=== PATIENT | male | born 1960 | race Asian ===

== ENCOUNTER 2021-02-02 13:41 | Inpatient (IN) | payer MEDICAID, SELFPAY ==
--- NOTE | 2021-01-30 22:00 | NUR ---
PT ASLEEP. VISIBLE CHEST RISE AND FALL NOTED. CALL LIGHT WITHIN REACH. ALL PRECAUTIONS IN PLACE. WILL CONTINUE TO MONITOR
[~2021-02-02] VITALS: Ht 170.2 cm; Wt 53.5 kg
--- NOTE | 2021-02-02 13:45 | NUR ---
PT BIBA TAKEN TO ER BED 9.
[2021-02-02 13:46] VITALS: BP 128/82
--- NOTE | 2021-02-02 14:11 | NUR ---
SPOKE WITH PATIENT DAUGHTER HAIM FOR TRANSLATION. PT NUMBER [phone]. PT DAUGHTER NANDINI [phone]
[2021-02-02] MEDS ORDERED: MORPHINE SULFATE 4 MG/ML SYR IVP ONE ×2 (14:15→15:45)
[2021-02-02] MEDS ORDERED: ONDANSETRON 4 MG/2 ML VIAL IVP ONE (14:15)
--- NOTE | 2021-02-02 14:20 | NUR ---
60 Y MALE BIBA DUE TO ABDOMINAL PAIN THAT IS NON-RADITING. PER EMS PT WAS FOUND IN CAR SITTING ON SIDE OF [address] DUE TO ABDOMINAL PAIN. PER PT PAIN IS CURRENTLY 10/10 AND SHARP LIKE. PT DENIES ANY CHEST PAIN, SOB, FEVER/CHILLS AT THIS TIME. ABDOMEN IS RIGID TO TOUCH AND TENDER. PT IS CURRENTLY GUARING AND ACTIVELY MOVING TO RESOLVE PAIN. 18 G IV ESTABLISHED IN FIELD BY EMS. PMH: DENIES NKA
--- NOTE | 2021-02-02 14:20 | NUR ---
Note undone in EDM - 02/02/21 at 1436 by [email or web address] 60 Y MALE BIBA DUE TO ABDOMINAL PAIN THAT IS NON-RADITING. PER PT PAIN IS CURRENTLY 10/10 AND SHARP LIKE. PT DENIES ANY CHEST PAIN, SOB, FEVER/CHILLS AT THIS TIME. ABDOMEN IS RIGID TO TOUCH AND TENDER. PT IS CURRENTLY GUARING AND ACTIVELY MOVING TO RESOLVE PAIN. 18 G IV ESTABLISHED IN FIELD BY EMS. PMH: DENIES NKA
--- NOTE | 2021-02-02 14:23 | NUR ---
Tia phillips swab handed to CPT Giovana at ER bedside
--- NOTE | 2021-02-02 14:28 | NUR ---
PT TAKEN TO CT VIA W/C
--- NOTE | 2021-02-02 14:54 | NUR ---
PT RETURNED TO BED [address] VIA W/C
[2021-02-02] MEDS ORDERED: PIPERACILLIN/TAZOBACTAM 4.5 GM in DEXTROSE 5% 100 ML IV ONE (15:40)
[2021-02-02] MEDS ORDERED: PIPERACILLIN/TAZOBACTAM 4.5 GM VIAL IV ONE (15:45)
--- NOTE | 2021-02-02 15:50 | NUR ---
Daughter at bedside
[2021-02-02 16:06] LABS: BASOPHILS % (AUTO) 0.1 % (0.0-2.0); EOSINOPHILS % (AUTO) 0.1 % (0.0-4.0); HEMATOCRIT 36.7 % (36-52); HEMOGLOBIN 11.6 g/dL (12.0-18.0); LYMPHOCYTES # (AUTO) 0.2 K/uL (2.0-11.5); LYMPHOCYTES % (AUTO) 4.2 % (20.5-51.1); MEAN CORPUSCULAR HEMOGLOBIN 22 pg (27-31); MEAN CORPUSCULAR HGB CONC 32 g/dL (33-37); MEAN CORPUSCULAR VOLUME 70.9 fL (80-94); MONOCYTES # (AUTO) 0.2 K/uL (0.8-1.0); MONOCYTES % (AUTO) 4.3 % (1.7-9.3); NEUTROPHILS % (AUTO) 91.3 % (42.2-75.2); PLATELET COUNT (AUTO) 357 K/uL (140-450); RED BLOOD CELL COUNT(AUTO) 5.18 MIL/uL (4.20-6.10); RED CELL DISTRIBUTION WIDTH 16.8 % (11.6-13.7); WHITE BLOOD COUNT (AUTO) 5.5 K/uL (4.8-10.8)
--- NOTE | 2021-02-02 16:14 | NUR ---
Pt reports + relief to pain; 7/10 at this time.
--- NOTE | 2021-02-02 16:18 | NUR ---
PT REMOVED ALL CLOTHES AND PLACED ONLY IN GOWN FOR SURGERY
[2021-02-02 16:27] LABS: ALBUMIN 3.8 g/dL (3.4-5.0); ANION GAP 14.9 (8-16); CARBON DIOXIDE 26.6 mmol/L (21-32); CREATININE 0.9 mg/dL (0.6-1.3); POTASSIUM 4.5 mmol/L (3.5-5.1); TOTAL BILIRUBIN 0.5 mg/dL (0.0-1.0)
--- NOTE | 2021-02-02 16:28 | NUR ---
MED REC COMPLETED FOR PATIENT
--- NOTE | 2021-02-02 17:27 | NUR ---
Patient appears to be resting comfortably in bed. Vital Signs within normal limits. Respirations even and unlabored.
--- NOTE | 2021-02-02 17:40 | NUR ---
DR. SAMUEL BEDSIDE SPEAKING WITH PATIENT AND PROVIDING INFORMATION ON SURIGAL INTERVENTIONS
--- NOTE | 2021-02-02 17:43 | NUR ---
PT STATED HE IS STILL UNABLE TO PROVIDE URINE AT THIS TIME
[2021-02-02] MEDS ORDERED: HYDROcodone/APAP 5/325 MG 1 TAB TAB PO PRN (17:50)
[2021-02-02] MEDS ORDERED: SODIUM PHOS / POTASSIUM PHOS 1 PKT PDR PO PRN (17:50)
[2021-02-02] MEDS ORDERED: DOCUSATE SODIUM 100 MG GELCAP PO PRN (17:50)
[2021-02-02] MEDS ORDERED: ZOLPIDEM 5 MG TAB PO PRN (17:50)
[2021-02-02] MEDS ORDERED: ONDANSETRON 4 MG/2 ML VIAL IVP PRN ×2 (17:50→21:00)
[2021-02-02] MEDS ORDERED: LORazepam 2 MG/ML VIAL IM/IVP PRN (17:50)
[2021-02-02] MEDS ORDERED: MAG SULF 2000 MG/WATER PREMIX 50 ML IV PRN (17:50)
[2021-02-02] MEDS ORDERED: ACETAMINOPHEN 325 MG TAB PO PRN (17:50)
[2021-02-02] MEDS ORDERED: POTASSIUM CHLORIDE 10 MEQ TABER PO PRN (17:50)
--- NOTE | 2021-02-02 17:51 | NUR ---
CONSENT FOR SURGERY SIGNED AND PLACED INTO PATIENT CHART
--- NOTE | 2021-02-02 18:12 | NUR ---
DR. VALDERRAMA BEDSIDE EVALUATING PT
[2021-02-02] MEDS: MORPHINE SULFATE 2 MG/ML SYR IVP PRN (18:27)
--- NOTE | 2021-02-02 18:28 | NUR ---
PT STATING PAIN CURRENTLY 08/18. PROVIDED PT WITH PAIN MEDICATION. WILL RE-EVALUATE IN 15 MIN
[2021-02-02 18:48] LABS: PROTHROMBIN TIME 11.5 secs (10.8-13.4)
--- NOTE | 2021-02-02 18:53 | NUR ---
Patient will be admitted to care of DR. VALDERRAMA. Admited to TELE. Will go to room 126B. Belongings list completed. Report to OR NURSE. PT TAKEN TO SURGERY VIA GURNEY.
--- NOTE | 2021-02-02 18:53 | NUR ---
PT TAKEN TO SURGERY BY OR NURSE VIA RED
[2021-02-02] MEDS ORDERED: DEXAMETHASONE 4 MG/ML VIAL ONE (19:00)
[2021-02-02 19:07] LABS: PHOSPHORUS 2.7 mg/dL (2.5-4.9); THYROID STIMULATING HORMONE 0.96 uIU/mL (0.34-3.74)
[2021-02-02] MEDS ORDERED: LACTATED RINGERS 1,000 ML IV SCH (19:15)
[2021-02-02] MEDS ORDERED: PROPOFOL 200 MG/20 ML VIAL IV ONE (19:17)
[2021-02-02] MEDS ORDERED: MIDAZOLAM 2 MG/2 ML VIAL ONE (19:17)
[2021-02-02] MEDS ORDERED: HYDROmorphone PFS 2 MG/ML SYR ONE (19:17)
[2021-02-02] MEDS ORDERED: BUPIVACAINE-MPF/EPI 0.25% 30 ML VIAL INJ ONE (19:21)
[2021-02-02] MEDS ORDERED: LIDOCAINE 1% 500 MG/50 ML VIAL ONE (19:21)
[2021-02-02] MEDS ORDERED: ROCURONIUM 50 MG/5 ML VIAL IV ONE (19:23)
[2021-02-02] MEDS ORDERED: NEOSTIGMINE 1:1000 10 MG/10 ML VIAL ONE (20:22)
[2021-02-02] MEDS ORDERED: GLYCOPYRROLATE 0.2 MG/ML VIAL ONE ×2 (20:22)
[2021-02-02] MEDS ORDERED: HYDROmorphone 1 MG/ML AMP IVP PRN (21:00)
[2021-02-02] MEDS ORDERED: MEPERIDINE 25 MG/ML SYR IVP PRN (21:00)
[2021-02-02 21:30] VITALS: BP 104/61
--- NOTE | 2021-02-02 21:40 | NUR ---
RECEIVED PT FROM OR NURSE VIA [facility] FOR CONTINUITY OF CARE. PT ASLEEP BUT EASILY AROUSABLE WHEN CALLED BY NAME.PT ON ROOM AIR. PT JUST HAD SURGERY FOR PERFORATED DUODENAL ULCER. VERTICAL SURGICAL INCISION ON ABDOMEN, DRESSING DRY AND INTACT WITH FIDENCIO DRAIN ON R LOWER ABDOMEN. PT HAS IV ON L AC G18 INFUSING WELL. DAUGHTER AT BEDSIDE. DAUGHTER AND PATIENT ORIENTED TO ROOM AND CALL LIGHT. BED IN LOW LOCKED POSITION. ALL PRECAUTIONS IN PLACE. CALL LIGHT WITHIN REACH. WILL CONTINUE TO MONITOR.
[2021-02-02] MEDS: DEXT 5% / NACL 0.45% 1,000 ML IV SCH (22:34)
[2021-02-02] MEDS: FLUCONAZOLE 200 MG/NS PREMIX 100 ML IV SCH (22:34)
--- NOTE | 2021-02-02 22:40 | NUR ---
SCHEDULED MEDICATION ADMINISTERED. NO ADVERSE REACTION NOTED. CALL LIGHT WITHIN REACH. WILL CONTINUE MONITORING.
[2021-02-03] VITALS: BP 106/63
--- NOTE | 2021-02-03 00:24 | NUR ---
PT ASLEEP. VITAL SIGNS STABLE.NO DISTRESS NOTED. ALL PRECAUTION IN PLACE. WILL CONTINUE TO MONITOR.
--- NOTE | 2021-02-03 02:30 | NUR ---
PT ASLEEP. VISIBLE CHEST RISE AND FALL NOTED. CALL LIGHT WITHIN REACH. ALL PRECAUTIONS IN PLACE. WILL CONTINUE TO MONITOR
[2021-02-03 04:00] VITALS: BP 113/70
[2021-02-03] MEDS: DEXT 5% / NACL 0.45% 1,000 ML IV SCH ×3 (04:25→23:37)
--- NOTE | 2021-02-03 05:10 | NUR ---
PT COMPLAINED OF PAIN ON ABDOMEN. PRN PAIN MEDICATION GIVE. ALL PRECAUTIONS IN PLACE. WILL CONTINUE TO MONITOR.
[2021-02-03] MEDS: MORPHINE SULFATE 2 MG/ML SYR IVP PRN ×4 (05:15→18:13)
--- NOTE | 2021-02-03 06:26 | NUR ---
PT IS STABLE. NO ACUTE EVENTS THROUGHOUT THE NIGHT. ALL NEEDS ATTENDED. NO S/SX OF DISTRESS NOTED. ALL PRECAUTIONS IN PLACE. WILL ENDORSE TO AM SHIFT NURSE.
[2021-02-03 06:32] LABS: BASOPHILS % (AUTO) 0.1 % (0.0-2.0); HEMATOCRIT 33.3 % (36-52); HEMOGLOBIN 10.6 g/dL (12.0-18.0); LYMPHOCYTES # (AUTO) 0.3 K/uL (2.0-11.5); LYMPHOCYTES % (AUTO) 2.9 % (20.5-51.1); MEAN CORPUSCULAR HEMOGLOBIN 23 pg (27-31); MEAN CORPUSCULAR HGB CONC 32 g/dL (33-37); MEAN CORPUSCULAR VOLUME 70.7 fL (80-94); MONOCYTES # (AUTO) 0.5 K/uL (0.8-1.0); MONOCYTES % (AUTO) 4.8 % (1.7-9.3); NEUTROPHILS # (AUTO) 9.7 K/uL (1.8-7.7); NEUTROPHILS % (AUTO) 92.2 % (42.2-75.2); PLATELET COUNT (AUTO) 301 K/uL (140-450); RED CELL DISTRIBUTION WIDTH 16.4 % (11.6-13.7); WHITE BLOOD COUNT (AUTO) 10.5 K/uL (4.8-10.8)
[2021-02-03 06:44] LABS: ALBUMIN 2.6 g/dL (3.4-5.0); ANION GAP 10.1 (8-16); CARBON DIOXIDE 26.4 mmol/L (21-32); CREATININE 0.9 mg/dL (0.6-1.3); POTASSIUM 4.5 mmol/L (3.5-5.1); TOTAL BILIRUBIN 0.6 mg/dL (0.0-1.0)
--- NOTE | 2021-02-03 07:30 | NUR ---
RECEIVED REPORT FROM BULL FIDDLE PLAYER NURSE. PT IN BED, FLACC 0, NO RESPIRATORY DISTRESS
[2021-02-03 08:00] VITALS: BP 104/64
[2021-02-03] MEDS: HYDROmorphone 1 MG/ML AMP IVP PRN ×2 (11:46→21:09)
[2021-02-03 12:00] VITALS: BP 105/71
--- NOTE | 2021-02-03 14:00 | NUR ---
NOTED NO URINE OUTPUT SINCE SURGERY, BLADDER DISTENTION NOTED, DR VALDERRAMA NOTIFIED, ORDERED FC INSERTION
--- NOTE | 2021-02-03 15:20 | NUR ---
HYPOACTIVE BOWEL SOUNDS, NO BM, HAS NOT PASSED GAS. SEEN AND EXAMINED BY DR FOFANA, KEEP NPO
[2021-02-03 16:00] VITALS: BP 109/72
[2021-02-03] MEDS: FLUCONAZOLE 200 MG/NS PREMIX 100 ML IV SCH (18:54)
--- NOTE | 2021-02-03 19:30 | NUR ---
RECEIVED PT FROM AM SHIFT NURSE FOR CONTINUITY OF CARE. PT RESTING IN BED WITH DAUGHTER AT BEDSIDE. PT A&O 4. CAN UNDERSTAND AND SPEAK A LITTLE SPANISH WITH DAUGHTER AT BEDSIDE. PT ON ROOM AIR. SKIN WARM AND DRY TO TOUCH. MAN IN PLACE. HYPOACTIVE BOWEL SOUNDS. ALL PRECAUTIONS IN PLACE. CALL LIGHT WITHIN REACH. WILL CONTINUE TO MONITOR.
[2021-02-03 20:00] VITALS: BP 118/69
--- NOTE | 2021-02-03 21:15 | NUR ---
PT COMPLAINING OF PAIN ON ABDOMEN. PRN PAIN MEDICATION GIVEN. WILL CONTINUE TO MONITOR.
--- NOTE | 2021-02-03 23:36 | NUR ---
PT ASLEEP. VISIBLE CHEST RISE AND FALL NOTED. CALL LIGHT WITHIN REACH. ALL PRECAUTIONS IN PLACE. WILL CONTINUE TO MONITOR
[2021-02-04] VITALS: BP 111/67
--- NOTE | 2021-02-04 01:40 | NUR ---
PT ASLEEP. VISIBLE CHEST RISE AND FALL NOTED. CALL LIGHT WITHIN REACH. ALL PRECAUTIONS IN PLACE. WILL CONTINUE TO MONITOR
[2021-02-04] MEDS: MORPHINE SULFATE 2 MG/ML SYR IVP PRN ×3 (03:45→13:12)
--- NOTE | 2021-02-04 03:45 | NUR ---
PT COMPLAINING OF PAIN ON ABDOMEN. PRN PAIN MEDICATION GIVEN. WILL CONTINUE TO MONITOR.
[2021-02-04 04:00] VITALS: BP 133/84
[2021-02-04 06:20] LABS: BASOPHILS % (AUTO) 0.1 % (0.0-2.0); EOSINOPHILS % (AUTO) 0.1 % (0.0-4.0); HEMATOCRIT 33.2 % (36-52); HEMOGLOBIN 10.5 g/dL (12.0-18.0); LYMPHOCYTES # (AUTO) 0.5 K/uL (2.0-11.5); LYMPHOCYTES % (AUTO) 4.5 % (20.5-51.1); MEAN CORPUSCULAR HEMOGLOBIN 22 pg (27-31); MEAN CORPUSCULAR HGB CONC 32 g/dL (33-37); MEAN CORPUSCULAR VOLUME 70.2 fL (80-94); MONOCYTES # (AUTO) 0.8 K/uL (0.8-1.0); NEUTROPHILS # (AUTO) 9.7 K/uL (1.8-7.7); NEUTROPHILS % (AUTO) 88.3 % (42.2-75.2); PLATELET COUNT (AUTO) 281 K/uL (140-450); RED BLOOD CELL COUNT(AUTO) 4.72 MIL/uL (4.20-6.10); RED CELL DISTRIBUTION WIDTH 16.2 % (11.6-13.7)
[2021-02-04 06:35] LABS: ALBUMIN 2.3 g/dL (3.4-5.0); ANION GAP 9.4 (8-16); CARBON DIOXIDE 26.5 mmol/L (21-32); CREATININE 0.7 mg/dL (0.6-1.3); MAGNESIUM 1.8 mg/dL (1.8-2.4); POTASSIUM 3.9 mmol/L (3.5-5.1); TOTAL BILIRUBIN 0.4 mg/dL (0.0-1.0)
[2021-02-04 08:00] VITALS: BP 129/81
--- NOTE | 2021-02-04 08:00 | NUR ---
RECEIVED REPORT FROM IT RISK ADVISOR FOR CONTINUITY OF CARE. PATIENT IS ALERT AWAKE ORIENTED X4, NOT IN ANY DISTRESS NOTED. WITH IVF ON GOING AND INFUSING WELL. ON HEART MONITOR SHOWS SR. C/O PAIN IN THE SURGICAL SITE. MEDICATED WITH MORPHINE ORDER. WITH FIDENCIO DRAIN INTACT. SURGICAL SITE DRESSING DRY AND INTACT. NEEDS ATTENDED. WILL CONTINUE TO MONITOR.
--- NOTE | 2021-02-04 09:12 | NUR ---
PATIENT HAS BEEN SCREENED AND CATEGORIZED MODERATE NUTRITION RISK. PATIENT WILL BE SEEN WITHIN 3-5 DAYS OF ADMISSION. 02/05/21-02/07/21 REVIEWED BY MICKY NOON[address] RD
[2021-02-04] MEDS: DEXT 5% / NACL 0.45% 1,000 ML IV SCH ×2 (10:38→21:35)
--- NOTE | 2021-02-04 11:10 | NUR ---
DC PLANN[age] YRS OLD MALE PATIENT WAS ADMITTED FROM HOME WITH A DX OF PERFORATED BOWEL. PATIENT HAS NO MEDICAL HISTORY. DR SAMUEL PERFORMED LAPAROTOMY PRIMARY REPAIR OF PERFORATED GASTRIC ULCER WITH AMINATA OMENTAL PATCH. POST OP DAY 3, ON FLUCONAZOLE IV ABX. PT TOLERATED WELL ADVANCE DIET TO CLEAR LIQUID . DC PLAN TO GO HOME WHEN STABLE. CM TO FOLLOW Addendum: 02/05/21 at 1124 by Amber Reza RN DC PLANNING: RECEIVED A CALL FROM [employer] [phone] SPOKE WITH NIKKY JOHNSON STATED DIDN'T RECEIVE ANY CLINICALS, UPDATED PT'S CLINICAL AND FAXED TO [phone]. SHE PROVIDE THE PENDING AUTH # [id number]. CM TO FOLLOW
[2021-02-04 12:00] VITALS: BP 139/85
--- NOTE | 2021-02-04 12:00 | NUR ---
PATIENT TEMP 99.8, COOLING MEASURES RENDERED. WILL CONTINUE TO MONITOR.
[2021-02-04 16:00] VITALS: BP 132/85
--- NOTE | 2021-02-04 18:00 | NUR ---
PATIENT RE CHECK TEMP 99.2, WILL CONTINUE TO MONITOR.
[2021-02-04] MEDS: FLUCONAZOLE 200 MG/NS PREMIX 100 ML IV SCH (18:20)
--- NOTE | 2021-02-04 19:23 | NUR ---
REPORT GIVEN TO THE NEXT SHIFT FOR CONTINUITY OF CARE. PATIENT IN STABLE CONDITION.
[2021-02-04 20:00] VITALS: BP 119/84
--- NOTE | 2021-02-04 20:00 | NUR ---
AAOX4, NPO, ABDOMINAL DRESSING INTACT WITH FIDENCIO DRAIN. RECEIVING IVF OF D5 1/2 NS AT 100 ML/HR, IV SITE ON LAC G#18 INTACT AND PATENT. MAN CATH DRAINING YELLOW URINE, DENIES PAIN AT THIS TIME, CALL LIGHT WITHIN REACH.
--- NOTE | 2021-02-04 22:00 | NUR ---
PATIENT VOMITED, ZOFRAN 4 MG IVP GIVEN AT 2133. AT THIS TIME PATIENT IS ASLEEP, WILL CONTINUE TO MONITOR.
--- NOTE | 2021-02-05 | NUR ---
PATIENT AWAKE AT THIS TIME, DENIES PAIN, CALL LIGHT WITHIN REACH, NO DISTRESS.
[2021-02-05 04:00] VITALS: BP 118/84
--- NOTE | 2021-02-05 04:00 | NUR ---
PATIENT ASLEEP, DENIES PAIN, NO NAUSEA/VOMITING.
--- NOTE | 2021-02-05 05:00 | NUR ---
PATIENT COMPLAINED OF PAIN ON IV SITE ON LAC, REDNESS NOTED ON THE SITE, REMOVED IV AND INSERTED A NEW PERIPHERAL LINE ON LFA G#20 WITH GOOD BLOOD RETURN.
[2021-02-05] MEDS: DEXT 5% / NACL 0.45% 1,000 ML IV SCH ×2 (06:25→16:18)
[2021-02-05 06:26] LABS: BASOPHILS % (AUTO) 0.1 % (0.0-2.0); HEMATOCRIT 35.2 % (36-52); LYMPHOCYTES # (AUTO) 0.6 K/uL (2.0-11.5); LYMPHOCYTES % (AUTO) 4.6 % (20.5-51.1); MEAN CORPUSCULAR HEMOGLOBIN 22 pg (27-31); MEAN CORPUSCULAR HGB CONC 31 g/dL (33-37); MEAN CORPUSCULAR VOLUME 70.7 fL (80-94); MONOCYTES # (AUTO) 0.8 K/uL (0.8-1.0); MONOCYTES % (AUTO) 6.7 % (1.7-9.3); NEUTROPHILS # (AUTO) 10.6 K/uL (1.8-7.7); NEUTROPHILS % (AUTO) 88.6 % (42.2-75.2); PLATELET COUNT (AUTO) 299 K/uL (140-450); RED BLOOD CELL COUNT(AUTO) 4.99 MIL/uL (4.20-6.10); RED CELL DISTRIBUTION WIDTH 15.6 % (11.6-13.7); WHITE BLOOD COUNT (AUTO) 11.9 K/uL (4.8-10.8)
--- NOTE | 2021-02-05 06:31 | NUR ---
SLEEPING, AROUSABLE, NO VOMITING AT THIS TIME, DENIES PAIN, CALL LIGHT WITHIN REACH.
[2021-02-05 06:39] LABS: ALBUMIN 2.6 g/dL (3.4-5.0); ANION GAP 10.8 (8-16); CREATININE 0.7 mg/dL (0.6-1.3); POTASSIUM 3.8 mmol/L (3.5-5.1); TOTAL BILIRUBIN 0.5 mg/dL (0.0-1.0)
--- NOTE | 2021-02-05 07:12 | NUR ---
RECEIVED ENDORSEMENT FROM SANITARY LANDFILL OPERATOR NURSE FOR CONTINUITY OF CARE. PT AWAKE ON STABLE CONDITION.
--- NOTE | 2021-02-05 07:33 | NUR ---
ENDORSED PATIENT AND REPORT GIVEN TO SILVINA FLYNN/BELT WORKER FOR CONTINUITY OF CARE.
[2021-02-05 08:00] VITALS: BP 127/85
--- NOTE | 2021-02-05 08:00 | NUR ---
Patient's Plan of Care was discussed and reviewed with TRANSPORTATION AIDE: SILVINA FLYNN
--- NOTE | 2021-02-05 09:15 | NUR ---
PT ALERT TRANSPORTED TO RADIOLOGY BY STAFF ON STABLE CONDITION FOR PROCEDURE.
--- NOTE | 2021-02-05 10:20 | NUR ---
PT BACK FROM RADIOLOGY VIA WHEELCHAIR.
--- NOTE | 2021-02-05 10:34 | NUR ---
REMOVED MAN CATHETER NO SIGN AND SYMPTOMS OF BLEEDING. OBTAIN 600 CC AT CATHETER.
--- NOTE | 2021-02-05 10:46 | NUR ---
RESULT OF UGIS READ TO DR. SAMUEL AND WITH ORDER TO START ON CLEAR LIQUID, IF TOLERATES THE DIET CAN HEPLOCK IV. WILL CONTINUE TO MONITOR.
--- NOTE | 2021-02-05 11:30 | NUR ---
PT AMBULATE TO TOILET WITH DAUGHTER . PT HAD BOWEL MOVEMENT AND URINATED. NO HEMATURIA OR COMPLAIN OF PAIN IN URINATION.
[2021-02-05 12:00] VITALS: BP 130/82
--- NOTE | 2021-02-05 12:30 | NUR ---
PT HAD HIS LUNCH ON LIQUID DIET TOLERATED WELL NO NAUSEA OR VOMITING NOTED. CALL LIGHT WITH IN EASY REACH.
--- NOTE | 2021-02-05 13:30 | NUR ---
PT ON BED RESTING NO DISCOMFORT NOTED. IV HYDRATION INFUSING NO SIGN AND SYMPTOMS OF FLUID OVER LOAD. CALL LIGHT WITH IN EASY REACH. NO SIGN AND SYMPTOMS OF BLEEDING.
--- NOTE | 2021-02-05 13:30 | NUR ---
PT Addendum: 02/05/21 at 1837 by Iraida Wan LVN ERROR.
[2021-02-05 16:00] VITALS: BP 125/82
--- NOTE | 2021-02-05 16:35 | NUR ---
PT HAS VISITOR AT BED SIDE.
[2021-02-05] MEDS: FLUCONAZOLE 200 MG/NS PREMIX 100 ML IV SCH (18:31)
--- NOTE | 2021-02-05 18:31 | NUR ---
TALHA JULIEN IV ANTIBIOTIC TOLERATED WELL. NO ADVERSE REACTION NOTED.
--- NOTE | 2021-02-05 18:35 | NUR ---
FIDENCIO DRAINAGE NOTED WITH 10CC OF OUT PUT SEROSANGUINEOUS. DRESSING INTACT.
--- NOTE | 2021-02-05 19:25 | NUR ---
GAVE REPORT FOR GEOSCIENCE LABORATORY TECHNICIAN NURSE FOR CONTINUITY OF CARE. PT ON STABLE CONDITION.
--- NOTE | 2021-02-05 19:30 | NUR ---
RECEIVED ENDORSEMENT FROM AM SHIFT NURSE FOR CONTINUITY OF CARE. PT AWAKE ON STABLE CONDITION.NO DISTRESS NOTED. ALL PRECAUTIONS IN PLACE. WILL CONTINUE TO MONITOR.
[2021-02-05 20:00] VITALS: BP 122/80
--- NOTE | 2021-02-05 22:00 | NUR ---
PT ASLEEP. VISIBLE CHEST RISE AND FALL NOTED. CALL LIGHT WITHIN REACH. ALL PRECAUTIONS IN PLACE. WILL CONTINUE TO MONITOR
[2021-02-06] VITALS: BP 118/77
--- NOTE | 2021-02-06 | NUR ---
ASSISTED PT TO THE RESTROOM. PT NOT IN ANY DISTRESS. ALL PRECAUTIONS IN PLACE.WILL CONTINUE TO MONITOR
--- NOTE | 2021-02-06 02:15 | NUR ---
PT ASLEEP. VISIBLE CHEST RISE AND FALL NOTED. CALL LIGHT WITHIN REACH. ALL PRECAUTIONS IN PLACE. WILL CONTINUE TO MONITOR
[2021-02-06] MEDS: DEXT 5% / NACL 0.45% 1,000 ML IV SCH ×2 (02:25→12:25)
[2021-02-06 04:00] VITALS: BP 125/82
--- NOTE | 2021-02-06 04:15 | NUR ---
PT VITAL SIGNS ARE STABLE. NO DISTRESS NOTED.PROVIDED WARM BLANKETS. ALL PRECAUTIONS IN PLACE. WILL CONTINUE TO MONITOR.
[2021-02-06 06:39] LABS: BASOPHILS # (AUTO) 0.1 K/uL (0.00-0.22); BASOPHILS % (AUTO) 0.8 % (0.0-2.0); EOSINOPHILS # (AUTO) 0.1 K/uL (0-0.4); EOSINOPHILS % (AUTO) 0.7 % (0.0-4.0); HEMATOCRIT 31.4 % (36-52); LYMPHOCYTES # (AUTO) 0.6 K/uL (2.0-11.5); LYMPHOCYTES % (AUTO) 6.8 % (20.5-51.1); MEAN CORPUSCULAR HEMOGLOBIN 22 pg (27-31); MEAN CORPUSCULAR HGB CONC 32 g/dL (33-37); MEAN CORPUSCULAR VOLUME 70.3 fL (80-94); MONOCYTES # (AUTO) 0.8 K/uL (0.8-1.0); NEUTROPHILS # (AUTO) 7.3 K/uL (1.8-7.7); NEUTROPHILS % (AUTO) 82.7 % (42.2-75.2); PLATELET COUNT (AUTO) 325 K/uL (140-450); RED BLOOD CELL COUNT(AUTO) 4.47 MIL/uL (4.20-6.10); RED CELL DISTRIBUTION WIDTH 15.4 % (11.6-13.7); WHITE BLOOD COUNT (AUTO) 8.9 K/uL (4.8-10.8)
[2021-02-06 06:59] LABS: ALBUMIN 2.4 g/dL (3.4-5.0); ANION GAP 11.9 (8-16); CARBON DIOXIDE 24.8 mmol/L (21-32); CREATININE 0.7 mg/dL (0.6-1.3); MAGNESIUM 1.7 mg/dL (1.8-2.4); POTASSIUM 3.7 mmol/L (3.5-5.1); TOTAL BILIRUBIN 0.5 mg/dL (0.0-1.0)
--- NOTE | 2021-02-06 07:30 | NUR ---
ENDORSED TO AM SHIFT NURSE FOR CONTINUITY OF CARE. PT IS STABLE
--- NOTE | 2021-02-06 07:31 | NUR ---
RECEIVED BEDSIDE REPORT FROM ANIMAL SKINNER NURSE. PT IS BREATHING UNLABORED AND EVEN. NO S/S OF DISTRESS. PT IS STABLE.
--- NOTE | 2021-02-06 08:48 | NUR ---
PHYSICAL THERAPY CO-SIGN The Physical Therapy Progress Notes documented by Tax Assistant have been reviewed. Reviewed/Co-Signed by: Ashly Ayala Documentation Done by: JANET TIWARI PTA
--- NOTE | 2021-02-06 11:30 | NUR ---
CHEST XRAY PERFORMED ON PT. PT IS BREATHING UNLABORED AND EVEN. NO S/S OF DISTRESS. PT IS STABLE.
[2021-02-06] MEDS ORDERED: LEVO750T51 PO (12:31)
[2021-02-06] MEDS ORDERED: OMEP20EC11 PO (12:31)
[2021-02-06] MEDS ORDERED: BISM262C52 PO (12:31)
[2021-02-06] MEDS ORDERED: TRAM50TA1 PO (12:32)
[2021-02-06] MEDS ORDERED: GUAI-646 PO (12:33)
--- NOTE | 2021-02-06 13:30 | NUR ---
PT IS BREATHING UNLABORED AND EVEN. NO S/S OF DISTRESS. PT IS STABLE.
[2021-02-06 14:37] VITALS: BP 122/87
--- NOTE | 2021-02-06 17:00 | NUR ---
DISCHARGED PT TO DAUGHTER. PT IS BREATHING UNLABORED AND EVEN. NO S/S OF DISTRESS. PT IS STABLE. IV TAKEN OUT AND INTACT.
== END 2021-02-06 16:10 | disposition home or self-care (01) | DRG 710 ==
LOC: MED 13:41 → MTU 17:49 → MMU 18:45
PROVIDERS: ADMIT Family Medicine; ATTEND Family Medicine
PROC: 0DU707Z Supplement Stomach, Pylorus with Autologous Tissue Substitute, Open Approach (ICD-10-PCS; principal; 2021-02-02 16:10)
DX: A41.9 Sepsis, unspecified organism (principal); K25.5 Chronic or unspecified gastric ulcer with perforation; K65.9 Peritonitis, unspecified; K29.80 Duodenitis without bleeding; Z20.822 Contact with and (suspected) exposure to COVID-19
CPT/HCPCS: 36415; 71045; 74021; 80053; 82150; 83605; 83690; 83735; 84100; 84443; 84484; 85025; 85610; 85730; 86140; 86886; 86900; 86901; 87081; 88305; 93005; 96365; 96375; 96376; 97116; 97163-GP; 97530; 99285; J1100; J1170; J1450; J2001; J2250; J2270; J2405; J2543; J2704; J2710; J3475; J3490; J7120; Q0092